=== PATIENT | female | born 1945 | race Caucasian/White ===

== ENCOUNTER → 2018-08-31 | Outpatient (REF) | payer MEDICARE, OTHER ==
[2018-08-31 14:59] LABS: BASO # 0.1 10^3/uL (0.0-0.2); BASO % 0.7 % (0.0-1.0); EOS # 0.1 10^3/uL (0.0-0.50); EOS % 0.9 % (0.0-3.0); HEMATOCRIT 40.3 % (36.0-47.0); HEMOGLOBIN 13.2 g/dl (12.0-15.5); IMMATURE GRANULOCYTE % 0.2 % (0-3.0); MEAN CORPUSCULAR HEMOGLOBIN 28.9 pg (27.0-33.0); MEAN CORPUSCULAR HGB CONC 32.8 g/dl (32.0-36.5); MEAN CORPUSCULAR VOLUME 88.2 fl (80.0-96.0); MONO # 0.6 10^3/uL (0.0-0.8); NEUTROPHILS # 5.9 10^3/uL (1.8-7.7); NEUTROPHILS % 68.2 % (36.0-66.0); PLATELET COUNT, AUTOMATED 359 10^3/uL (150-450); RED BLOOD COUNT 4.57 10^6/uL (4.00-5.40); RED CELL DISTRIBUTION WIDTH 13.7 % (11.5-14.5); WHITE BLOOD COUNT 8.6 10^3/uL (4.0-10.0)
[2018-08-31 15:35] LABS: C REACTIVE PROTEIN QUANTITATIV 4.07 MG/DL (0.00-0.30)
[2018-08-31 15:44] LABS: ERYTHROCYTE SEDIMENTATION RATE 59 mm/hr (0-30)
== END ==
LOC: M LABDRAW1 13:21
DX: M19.072 Primary osteoarthritis, left ankle and foot (principal)
CPT/HCPCS: 86140

== ENCOUNTER 2022-06-20 14:31 | Inpatient (IN) | payer MEDICARE, OTHER ==
[~2022-06-20] VITALS: Ht 157.5 cm; Wt 67.0 kg
[2022-06-20] MEDS ORDERED: ALBUTEROL 90 MCG/ACT 8GM HFA INHALER INH ONE (14:45)
[2022-06-20 15:34] LABS: VENOUS BASE EXCESS 1.5 (-2.0-2.0); VENOUS HCO3 27.2 MEQ/L (23.0-27.0); VENOUS PARTIAL PRESSURE CO2 46.9 mmHg (38.0-50.0); VENOUS PARTIAL PRESSURE O2 31.4 mmHg (30.0-50.0); VENOUS PH 7.381 UNITS (7.330-7.430); VENOUS STANDARD HCO3 24.9 MEQ/L; VENOUS TOTAL CO2 28.6 MEQ/L (24.0-28.0)
[2022-06-20 15:35] LABS: BASO % 0.2 % (0.0-1.0); EOS # 0.1 10^3/uL (0.0-0.5); EOS % 1.1 % (0.0-3.0); HEMATOCRIT 39.9 % (36.0-47.0); HEMOGLOBIN 12.7 g/dl (12.0-15.5); LYMPH # 1.5 10^3/uL (1.5-5.0); LYMPH % 33.6 % (24.0-44.0); MEAN CORPUSCULAR HGB CONC 31.8 g/dl (32.0-36.5); MEAN CORPUSCULAR VOLUME 84.9 fl (80.0-96.0); MONO # 0.5 10^3/uL (0.0-0.8); MONO % 10.7 % (2.0-8.0); NEUTROPHILS # 2.4 10^3/uL (1.5-8.5); NEUTROPHILS % 53.7 % (36.0-66.0); PLATELET COUNT, AUTOMATED 293 10^3/uL (150-450); WHITE BLOOD COUNT 4.5 10^3/uL (4.0-10.0)
[2022-06-20] MEDS ORDERED: ONDANSETRON 4MG 2ML VIAL IV ONE (16:00)
[2022-06-20 16:02] LABS: ALBUMIN 3.3 GM/DL (3.2-5.2); ALT/SGPT 23 U/L (12-78); BILIRUBIN,TOTAL 0.2 MG/DL (0.2-1.0); BLOOD UREA NITROGEN 15 MG/DL (7-18); C REACTIVE PROTEIN QUANTITATIV 1.12 MG/DL (0.00-0.30); CALCIUM LEVEL 8.9 MG/DL (8.8-10.2); CARBON DIOXIDE LEVEL 29 MEQ/L (21-32); CHLORIDE LEVEL 105 MEQ/L (98-107); CREATININE FOR GFR 0.67 MG/DL (0.55-1.30); FERRITIN 315 NG/ML (8-252); GLOMERULAR FILTRATION RATE > 60.0 (>39); GLUCOSE, FASTING 119 MG/DL (70-100); LDH LACTATE DEHYDROGENASE 180 U/L (84-246); MAGNESIUM LEVEL 1.5 MG/DL (1.8-2.4); POTASSIUM SERUM 3.3 MEQ/L (3.5-5.1); SODIUM LEVEL 141 MEQ/L (136-145); TOTAL PROTEIN 6.7 GM/DL (6.4-8.2)
[2022-06-20 16:18] LABS: INR 1.09; PROTHROMBIN TIME 14.6 SECONDS (12.7-14.5)
[2022-06-20] MEDS ORDERED: ACETAMINOPHEN TAB 650MG DOSE (2X325MG) PO PRN (16:50)
[2022-06-20] MEDS ORDERED: POTASSIUM CHLORIDE 10MEQ SR TABLET PO ONE (16:50)
[2022-06-20] MEDS ORDERED: MAG SULF 1GM/100ML (MAG RUN) 1 GM in IV 1 EA IV ONE (16:50)
[2022-06-20] MEDS ORDERED: ALBUTEROL SULFATE 2.5 MG/0.5 ML INH NEB SOLN NEB PRN (16:50)
[2022-06-20] MEDS ORDERED: VENL150C43 PO (16:59)
[2022-06-20] MEDS ORDERED: ATOR40TA75 PO (16:59)
[2022-06-20] MEDS ORDERED: METO25TA4 PO (16:59)
[2022-06-20] MEDS ORDERED: TRAZ1TAB11 PO (16:59)
[2022-06-20] MEDS ORDERED: CLOP75TA2 PO (16:59)
[2022-06-20] MEDS ORDERED: PRED10TA2 PO (16:59)
[2022-06-20] MEDS ORDERED: HYDR-3490 PO (16:59)
[2022-06-20] MEDS ORDERED: ASPI81CH33 PO (17:13)
[2022-06-20] MEDS ORDERED: SULF1TAB30 PO (17:15)
[2022-06-20 17:44] LABS: NT-PRO BNP 224 PG/ML (<450)
[2022-06-20] MEDS ORDERED: HOME MED LIST COMPLETE! XX SCH (18:40)
[2022-06-20 18:46] LABS: D-DIMER QUANT 1596.13 ng/ml (<500)
[2022-06-20] MEDS: METOPROLOL TART 25 MG TABLET PO SCH (21:00)
[2022-06-20 21:20] VITALS: BP 104/59
[2022-06-20] MEDS: IPRATROPIUM 0.5MG/ALBUTEROL 2.5MG INH SOL UD 3ML (DUONEB) NEB SCH (21:49)
[2022-06-20] MEDS ORDERED: REMDESIVIR 200 MG in NS 250 ML IV ONE (22:00)
[2022-06-20] MEDS: CLOPIDOGREL 75 MG TAB PO SCH (22:15)
[2022-06-20] MEDS: ATORVASTATIN 20 MG TAB PO SCH (22:15)
[2022-06-20] MEDS: sulfaSALAzine 500 MG TABEC PO SCH (23:20)
[2022-06-20] MEDS: ENOXAPARIN 40MG/0.4ML SYRINGE (J1650 PER 10MG) SC SCH (23:22)
[2022-06-21] MEDS ORDERED: SODIUM CHLORIDE 0.9% INJ 10 ML SYR IV ONE
[2022-06-21 04:00] VITALS: BP 111/57
[2022-06-21 06:13] LABS: HEMOGLOBIN 11.6 g/dl (12.0-15.5); MEAN CORPUSCULAR HEMOGLOBIN 26.7 pg (27.0-33.0); MEAN CORPUSCULAR HGB CONC 31.4 g/dl (32.0-36.5); MEAN CORPUSCULAR VOLUME 85.3 fl (80.0-96.0); PLATELET COUNT, AUTOMATED 294 10^3/uL (150-450); RED BLOOD COUNT 4.34 10^6/uL (4.00-5.40); WHITE BLOOD COUNT 3.9 10^3/uL (4.0-10.0)
[2022-06-21 06:46] LABS: ALBUMIN 2.9 GM/DL (3.2-5.2); ALT/SGPT 18 U/L (12-78); BILIRUBIN,TOTAL 0.2 MG/DL (0.2-1.0); BLOOD UREA NITROGEN 14 MG/DL (7-18); CARBON DIOXIDE LEVEL 26 MEQ/L (21-32); CHLORIDE LEVEL 108 MEQ/L (98-107); CREATININE FOR GFR 0.66 MG/DL (0.55-1.30); GLOMERULAR FILTRATION RATE > 60.0 (>39); GLUCOSE, FASTING 136 MG/DL (70-100); POTASSIUM SERUM 4.2 MEQ/L (3.5-5.1); SODIUM LEVEL 141 MEQ/L (136-145); TOTAL PROTEIN 6.7 GM/DL (6.4-8.2)
[2022-06-21] MEDS: IPRATROPIUM 0.5MG/ALBUTEROL 2.5MG INH SOL UD 3ML (DUONEB) NEB SCH ×4 (07:42→19:35)
[2022-06-21 08:00] VITALS: O2SAT 93
[2022-06-21] MEDS: dexameTHASONE 4 MG/ML 1ML VIAL (J1100 PER 1MG) IV SCH (08:14)
[2022-06-21] MEDS: ASPIRIN 81 MG CHEW TABLET PO SCH (08:14)
[2022-06-21] MEDS: sulfaSALAzine 500 MG TABEC PO SCH (08:14)
[2022-06-21] MEDS: ENOXAPARIN 40MG/0.4ML SYRINGE (J1650 PER 10MG) SC SCH ×2 (08:14→20:44)
[2022-06-21] MEDS: VENLAFAXINE **XR** 75MG CAPSULE PO SCH (08:15)
[2022-06-21] MEDS: METOPROLOL TART 25 MG TABLET PO SCH ×2 (08:15→20:44)
[2022-06-21] MEDS: guaiFENesin ER 600 MG TAB PO SCH ×2 (11:53→20:44)
[2022-06-21] MEDS: AZITHROMYCIN INJ 500 MG, VIAL MATE ADAPTER 1 EACH in NS 250 ML IV SCH (11:53)
[2022-06-21 12:00] VITALS: BP 120/64; O2SAT 97
[2022-06-21 14:40] VITALS: O2SAT 94
[2022-06-21 18:41] VITALS: O2SAT 96
[2022-06-21 20:00] VITALS: BP 103/58
[2022-06-21] MEDS: ATORVASTATIN 20 MG TAB PO SCH (20:44)
[2022-06-21] MEDS: CLOPIDOGREL 75 MG TAB PO SCH (20:44)
[2022-06-21] MEDS: REMDESIVIR 100 MG in NS 250 ML IV SCH (20:45)
[2022-06-21] MEDS: SODIUM CHLORIDE 0.9% INJ 10 ML SYR IV SCH (22:13)
[2022-06-22 06:00] VITALS: BP 149/65
[2022-06-22 06:35] LABS: HEMOGLOBIN 11.2 g/dl (12.0-15.5); MEAN CORPUSCULAR HEMOGLOBIN 27.3 pg (27.0-33.0); MEAN CORPUSCULAR VOLUME 85.2 fl (80.0-96.0); PLATELET COUNT, AUTOMATED 292 10^3/uL (150-450); RED BLOOD COUNT 4.11 10^6/uL (4.00-5.40); WHITE BLOOD COUNT 6.8 10^3/uL (4.0-10.0)
[2022-06-22 07:03] LABS: ALBUMIN 2.8 GM/DL (3.2-5.2); ALT/SGPT 23 U/L (12-78); BILIRUBIN,TOTAL 0.5 MG/DL (0.2-1.0); BLOOD UREA NITROGEN 18 MG/DL (7-18); CALCIUM LEVEL 8.6 MG/DL (8.8-10.2); CARBON DIOXIDE LEVEL 25 MEQ/L (21-32); CHLORIDE LEVEL 109 MEQ/L (98-107); CREATININE FOR GFR 0.52 MG/DL (0.55-1.30); GLOMERULAR FILTRATION RATE > 60.0 (>39); GLUCOSE, FASTING 95 MG/DL (70-100); POTASSIUM SERUM 3.6 MEQ/L (3.5-5.1); SODIUM LEVEL 141 MEQ/L (136-145); TOTAL PROTEIN 5.8 GM/DL (6.4-8.2)
[2022-06-22] MEDS: IPRATROPIUM 0.5MG/ALBUTEROL 2.5MG INH SOL UD 3ML (DUONEB) NEB SCH ×4 (07:36→19:25)
[2022-06-22] MEDS: ASPIRIN 81 MG CHEW TABLET PO SCH (08:55)
[2022-06-22] MEDS: VENLAFAXINE **XR** 75MG CAPSULE PO SCH (08:55)
[2022-06-22] MEDS: guaiFENesin ER 600 MG TAB PO SCH ×2 (08:55→21:57)
[2022-06-22] MEDS: dexameTHASONE 4 MG/ML 1ML VIAL (J1100 PER 1MG) IV SCH (08:56)
[2022-06-22] MEDS: METOPROLOL TART 25 MG TABLET PO SCH ×2 (08:56→21:32)
[2022-06-22] MEDS: ENOXAPARIN 40MG/0.4ML SYRINGE (J1650 PER 10MG) SC SCH ×2 (08:57→21:58)
[2022-06-22 12:00] VITALS: BP 101/55
[2022-06-22] MEDS: AZITHROMYCIN INJ 500 MG, VIAL MATE ADAPTER 1 EACH in NS 250 ML IV SCH (12:28)
[2022-06-22 20:00] VITALS: BP 108/55; O2SAT 94
[2022-06-22] MEDS: ATORVASTATIN 20 MG TAB PO SCH (21:57)
[2022-06-22] MEDS: CLOPIDOGREL 75 MG TAB PO SCH (21:57)
[2022-06-22] MEDS: REMDESIVIR 100 MG in NS 250 ML IV SCH (21:57)
[2022-06-22] MEDS: SODIUM CHLORIDE 0.9% INJ 10 ML SYR IV SCH (21:58)
[2022-06-23] VITALS (8 sets, daily range): BP systolic 112–163; BP diastolic 60–77; O2SAT 90–95
[2022-06-23 06:20] LABS: HEMOGLOBIN 11.6 g/dl (12.0-15.5); MEAN CORPUSCULAR HEMOGLOBIN 26.7 pg (27.0-33.0); MEAN CORPUSCULAR HGB CONC 31.4 g/dl (32.0-36.5); MEAN CORPUSCULAR VOLUME 85.1 fl (80.0-96.0); PLATELET COUNT, AUTOMATED 338 10^3/uL (150-450); RED BLOOD COUNT 4.35 10^6/uL (4.00-5.40); WHITE BLOOD COUNT 6.9 10^3/uL (4.0-10.0)
[2022-06-23 06:55] LABS: ALBUMIN 2.8 GM/DL (3.2-5.2); ALT/SGPT 24 U/L (12-78); BILIRUBIN,TOTAL 0.2 MG/DL (0.2-1.0); BLOOD UREA NITROGEN 17 MG/DL (7-18); CALCIUM LEVEL 8.9 MG/DL (8.8-10.2); CARBON DIOXIDE LEVEL 27 MEQ/L (21-32); CHLORIDE LEVEL 108 MEQ/L (98-107); CREATININE FOR GFR 0.61 MG/DL (0.55-1.30); GLOMERULAR FILTRATION RATE > 60.0 (>39); GLUCOSE, FASTING 95 MG/DL (70-100); POTASSIUM SERUM 3.7 MEQ/L (3.5-5.1); SODIUM LEVEL 141 MEQ/L (136-145); TOTAL PROTEIN 6.2 GM/DL (6.4-8.2)
[2022-06-23] MEDS: IPRATROPIUM 0.5MG/ALBUTEROL 2.5MG INH SOL UD 3ML (DUONEB) NEB SCH ×4 (07:21→19:43)
[2022-06-23] MEDS: ASPIRIN 81 MG CHEW TABLET PO SCH (10:25)
[2022-06-23] MEDS: guaiFENesin ER 600 MG TAB PO SCH ×2 (10:25→21:13)
[2022-06-23] MEDS: ENOXAPARIN 40MG/0.4ML SYRINGE (J1650 PER 10MG) SC SCH ×2 (10:25→21:13)
[2022-06-23] MEDS: VENLAFAXINE **XR** 75MG CAPSULE PO SCH (10:26)
[2022-06-23] MEDS: dexameTHASONE 4 MG/ML 1ML VIAL (J1100 PER 1MG) IV SCH (10:26)
[2022-06-23] MEDS: METOPROLOL TART 25 MG TABLET PO SCH ×2 (10:27→21:14)
[2022-06-23] MEDS: AZITHROMYCIN INJ 500 MG, VIAL MATE ADAPTER 1 EACH in NS 250 ML IV SCH (13:37)
[2022-06-23] MEDS ORDERED: CALCIUM CARBONATE 500 MG CHEW U/D PO PRN (20:20)
[2022-06-23] MEDS: REMDESIVIR 100 MG in NS 250 ML IV SCH (21:13)
[2022-06-23] MEDS: ATORVASTATIN 20 MG TAB PO SCH (21:13)
[2022-06-23] MEDS: CLOPIDOGREL 75 MG TAB PO SCH (21:13)
[2022-06-23] MEDS: SODIUM CHLORIDE 0.9% INJ 10 ML SYR IV SCH (22:03)
[2022-06-24 00:44] VITALS: O2SAT 93
[2022-06-24 04:00] VITALS: BP 122/59; O2SAT 93
[2022-06-24 06:41] LABS: HEMATOCRIT 36.1 % (36.0-47.0); HEMOGLOBIN 11.4 g/dl (12.0-15.5); MEAN CORPUSCULAR HEMOGLOBIN 26.8 pg (27.0-33.0); MEAN CORPUSCULAR HGB CONC 31.6 g/dl (32.0-36.5); MEAN CORPUSCULAR VOLUME 84.7 fl (80.0-96.0); PLATELET COUNT, AUTOMATED 339 10^3/uL (150-450); RED BLOOD COUNT 4.26 10^6/uL (4.00-5.40)
[2022-06-24 07:13] LABS: ALBUMIN 2.8 GM/DL (3.2-5.2); ALT/SGPT 31 U/L (12-78); BILIRUBIN,TOTAL 0.2 MG/DL (0.2-1.0); BLOOD UREA NITROGEN 19 MG/DL (7-18); CALCIUM LEVEL 8.6 MG/DL (8.8-10.2); CARBON DIOXIDE LEVEL 25 MEQ/L (21-32); CHLORIDE LEVEL 108 MEQ/L (98-107); CREATININE FOR GFR 0.55 MG/DL (0.55-1.30); GLOMERULAR FILTRATION RATE > 60.0 (>39); GLUCOSE, FASTING 94 MG/DL (70-100); POTASSIUM SERUM 3.7 MEQ/L (3.5-5.1); SODIUM LEVEL 141 MEQ/L (136-145); TOTAL PROTEIN 5.6 GM/DL (6.4-8.2)
[2022-06-24] MEDS: IPRATROPIUM 0.5MG/ALBUTEROL 2.5MG INH SOL UD 3ML (DUONEB) NEB SCH ×3 (07:48→15:34)
[2022-06-24] MEDS: ASPIRIN 81 MG CHEW TABLET PO SCH (08:49)
[2022-06-24] MEDS: VENLAFAXINE **XR** 75MG CAPSULE PO SCH (08:49)
[2022-06-24] MEDS: ENOXAPARIN 40MG/0.4ML SYRINGE (J1650 PER 10MG) SC SCH (08:49)
[2022-06-24] MEDS: dexameTHASONE 4 MG/ML 1ML VIAL (J1100 PER 1MG) IV SCH (08:50)
[2022-06-24] MEDS: guaiFENesin ER 600 MG TAB PO SCH (08:50)
[2022-06-24 08:51] VITALS: BP 125/76
[2022-06-24] MEDS: METOPROLOL TART 25 MG TABLET PO SCH (08:51)
[2022-06-24] MEDS ORDERED: AZITHROMYCIN 250MG TABLET PO SCH (09:00)
[2022-06-24 12:00] VITALS: BP 122/59
[2022-06-24] MEDS ORDERED: DEXA6TAB PO (12:49)
[2022-06-24] MEDS ORDERED: MUCI600T31 PO (12:49)
[2022-06-24] MEDS ORDERED: ALB2.5NEB NEB (12:49)
[2022-06-24] MEDS ORDERED: TIOT18INH INH (12:49)
== END 2022-06-24 15:45 | disposition home or self-care (01) | DRG 177 ==
LOC: EDBD 14:31 → M ED 14:31 → M ED INP 19:32 → ENRESERVTM 19:50 → ENRESERVDT 19:50 → M 4MAIN 21:20
PROVIDERS: ADMIT Internal Medicine; ATTEND Internal Medicine
DX: U07.1 COVID-19 (principal); J96.01 Acute respiratory failure with hypoxia; J12.82 Pneumonia due to coronavirus disease 2019; J44.1 Chronic obstructive pulmonary disease with (acute) exacerbation; I25.10 Atherosclerotic heart disease of native coronary artery without angina pectoris; E78.5 Hyperlipidemia, unspecified; I10 Essential (primary) hypertension; Z86.73 Personal history of transient ischemic attack (TIA), and cerebral infarction without residual deficits; M06.9 Rheumatoid arthritis, unspecified; F32.A Depression, unspecified; Z95.1 Presence of aortocoronary bypass graft; Z85.51 Personal history of malignant neoplasm of bladder; Z88.5 Allergy status to narcotic agent; Z79.899 Other long term (current) drug therapy; Z79.82 Long term (current) use of aspirin; F17.200 Nicotine dependence, unspecified, uncomplicated

== ENCOUNTER → 2023-04-27 | Outpatient (CLI) | payer OTHER ==
[~2023-04-27] MED LIST: ALB2.5NEB NEB; ASPI81CH33 PO; ATOR40TA75 PO; CLOP75TA2 PO; DEXA6TAB PO; HYDR-3490 PO; METO25TA4 PO; MUCI600T31 PO; PRED10TA2 PO; SULF1TAB30 PO; TIOT18INH INH; TRAZ1TAB11 PO; VENL150C43 PO
== END ==
LOC: M RAD 15:47
PROVIDERS: ATTEND Nurse Practitioner Family
DX: R80.9 Proteinuria, unspecified (principal)

== ENCOUNTER → 2023-06-30 | Outpatient (CLI) | payer OTHER | LOC: M RAD 12:18 | PROVIDERS: ATTEND Nurse Practitioner Family | DX: F17.210 Nicotine dependence, cigarettes, uncomplicated (principal) ==

== ENCOUNTER → 2025-05-21 | Outpatient (CLI) | payer OTHER | LOC: M RAD 13:31 | PROVIDERS: ATTEND Nurse Practitioner Family | DX: Z12.2 Encounter for screening for malignant neoplasm of respiratory organs (principal); F17.210 Nicotine dependence, cigarettes, uncomplicated ==

== ENCOUNTER → 2025-07-29 | Outpatient (CLI) | payer OTHER | LOC: M RAD 10:25 | PROVIDERS: ATTEND Surgery Vascular Surgery | DX: I71.03 Dissection of thoracoabdominal aorta (principal); I70.0 Atherosclerosis of aorta ==